=== PATIENT | female | born 1975 | race Caucasian/White ===

== ENCOUNTER → 2016-10-26 | Outpatient (REF) | payer OTHER ==
[2016-10-26 13:35] LABS: PERCENT SATURATION 47.4 % (13.2-37.4)
== END ==
LOC: M LAB REF 12:14
PROVIDERS: ATTEND Internal Medicine Medical Oncology
DX: D50.9 Iron deficiency anemia, unspecified (principal)

== ENCOUNTER → 2017-03-05 | Outpatient (REF) | payer OTHER | LOC: M LAB REF 09:37 | PROVIDERS: ATTEND Physician Assistant | DX: J02.9 Acute pharyngitis, unspecified (principal) ==

== ENCOUNTER → 2017-09-27 | Outpatient (REF) | payer OTHER | LOC: M LAB REF 17:03 | PROVIDERS: ATTEND Family Medicine | DX: L02.212 Cutaneous abscess of back [any part, except buttock and flank] (principal) ==

== ENCOUNTER → 2018-07-05 | Outpatient (REF) | payer OTHER | LOC: M LAB REF 19:36 | DX: J02.9 Acute pharyngitis, unspecified (principal) ==

== ENCOUNTER → 2019-01-18 | Outpatient (REF) | payer OTHER | LOC: M LAB REF 17:11 | PROVIDERS: ATTEND Family Medicine | DX: L82.1 Other seborrheic keratosis (principal) ==

== ENCOUNTER → 2020-09-19 | Outpatient (CLI) | payer OTHER ==
--- NOTE | 2020-09-21 08:07 | REP ---
INDICATION: HAND PAIN COMPARISON: None. TECHNIQUE: AP, lateral, bilateral oblique views right hand. FINDINGS: The osseous structures and joint spaces are intact and essentially age-appropriate. There is no evidence for acute fracture or dislocation. Surrounding soft tissues are unremarkable. No subcutaneous emphysema or radiodense foreign body. IMPRESSION: . No acute fracture or dislocation. <Electronically signed by Tristan Cho > 09/19/20 [id number]
== END ==
LOC: M WUC 15:02
PROVIDERS: ATTEND Physician Assistant
DX: M25.541 Pain in joints of right hand (principal)